=== PATIENT | male | born 1960 | race Caucasian/White ===

== ENCOUNTER 2019-09-11 19:52 | Emergency (ER) | payer OTHER, SELFPAY ==
[2019-09-11 20:02] VITALS: BP 157/78; PULSE 107; RESP 20; TEMP 37; O2SAT 97; BMI 34.7
--- NOTE | 2019-09-11 21:32 | ED_ITS ---
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 He does not note any rashes or particular edema. He has had a left knee replacement in the past. He had 2 days where he had some numbness to the left anterior davey but that has since resolved. He has a bit of an antalgic gait because of the pain in the thigh. Describes some mild chronic back pain that does not seem particularly different or bothersome at this time. He denies fever, cough, chills. No chest pain, dyspnea, palpitations that he is appreciated. No nausea vomiting or diarrhea. No significant lower extremity edema, no rashes, no bruising or rashes along the leg. He has never had similar symptoms. Related Data Allergies Allergy/AdvReac Type Severity Reaction Status Date / Time oxycodone Allergy ITCHING Verified 09/11/19 20:10 Review of Systems Review of Systems Narrative: Remainder of review of systems including constitutional, ENT, cardiovascular, respiratory, GI, , musculoskeletal, skin, neurologic and psychiatric systems reviewed and are unremarkable except as noted in HPI. Patient History Surgical History History of left knee replacement (Acute) Social History Smoking Status: Never smoker Smoking Status: Never smoker alcohol intake frequency: 0-2 drinks per day Substance Use Type: does not use Exam Narrative Exam Narrative: General: Healthy appearing, in no acute distress. Able to give a complete and coherent history. Well-nourished well-developed HEENT: Moist mucous membranes, normal sclera with reactive pupils, Neck: supple Respiratory: Lungs are clear to auscultation, no wheezing no rales no rhonchi. Full and symmetrical air movement Cardiac: Tachycardic with Regular rate and rhythm no murmurs no bruits Abdomen: Soft nontender good bowel tones, no flank pain Skin: Warm and dry, no rashes Neurologic: Grossly neurologically intact with no obvious asymmetries or abnormalities Extremities: No trauma, well perfused. No inguinal adenopathy with good inguinal pulses left groin. No rashes swelling erythema or palpable tenderness appreciable the left anterior thigh Psych: Cooperative, appropriate insight and affect Initial Vital Signs Initial Vital Signs: Vital Signs Temperature 98.6 F 09/11/19 20:02 Pulse Rate 107 H 09/11/19 20:02 Respiratory Rate 20 09/11/19 20:02 Blood Pressure 157/78 H 09/11/19 20:02 Pulse Oximetry 97 09/11/19 20:02 Course Orders Ordered: ED Orders 09/11/19 21:41 perip venous low extrem lt Stat 09/11/19 21:51 Complete Blood Count AUTO DIFF Stat Comprehensive Metabolic Panel Stat D Dimer Stat Vital Signs Vital signs: Vital Signs - 8 hr 09/11/19 20:02 Temperature 98.6 F Pulse Rate 107 H Respiratory Rate 20 Blood Pressure 157/78 H Pulse Oximetry 97 MDM - Extremity (Nontraumatic) Medical Records Attestation: I reviewed the patient's medical records. Lab Data Attestation: I reviewed the patient's lab results. Lab results narrative: Normal D-dimer Result diagrams: 09/11/19 21:51 09/11/19 21:51 Labs: Lab Results 09/11/19 09/11/19 09/11/19 Range/Units 21:51 21:51 21:51 WBC 11.9 H (4.5-11.0) X10^3/uL RBC 5.13 (4.5-5.9) X10^6/uL Hgb 15.5 (13.5-17.5) g/dL Hct 45.0 (41-53) % MCV 87.9 (80-100) fL MCH 30.3 (26-34) PG MCHC 34.5 (30-36) % RDW 13.9 (11.6-14.8) % Plt Count 221 (150-400) X10^3/uL Neut % (Auto) 57.0 (50-75) % Lymph % (Auto) 29.7 (25-40) % [place] % (Auto) 10.3 (3-14) % Eos % (Auto) 1.9 L (2-4) % Baso % (Auto) 1.1 (0-2) % Neut # (Auto) 6800 (1920-3846) /uL Lymph # (Auto) 3500 (1295-6766) /uL [place] # (Auto) 1200 H (0-900) /uL Eos # (Auto) 200 (0-450) /uL Baso # (Auto) 100 (0-100) /uL D-Dimer < 200 (<230) ng/mL Sodium 140 (137-145) mmol/L Potassium 4.2 (3.4-5.1) mmol/L Chloride 102 (98-107) mmol/L Carbon Dioxide 30 (22-32) mmol/L BUN 31 H (9-20) mg/dL Creatinine 0.82 (0.66-1.25) mg/dL Estimated GFR > 60.0 (>60) mL/min BUN/Creatinine Ratio 37.8 H (6-22) Glucose 118 H (70-100) mg/dL Calcium 9.7 (8.4-10.2) mg/dL Total Bilirubin 0.4 (0.2-1.3) mg/dL AST 35 (17-59) IU/L ALT 32 (<50) IU/L Alkaline Phosphatase 113 (38-126) U/L Total Protein 7.6 (6.3-8.2) g/dL Albumin 4.6 (3.5-5.0) g/dL Globulin 3.0 (1.7-4.1) g/dL Albumin/Globulin Ratio 1.5 (1.0-2.8) Imaging Data US - DVT: My Impression: Per environmental sampling technician, no evidence of DVT through the entire leg or thigh MDM Narrative Medical decision making narrative: 59-year-old gentleman with acute musculoskeletal pain in the left anterior thigh. No evidence of cellulitis, DVT or acute radiculopathy. Labs are reassuring. This point most likely explanation is musculoskeletal pain. Given your prior knee replacement on that side and the sense that the leg is not stable when the pain hits and your unable to predict when that might be I believe your risk of falling is significant. I recommend 5 days of rest. Ibuprofen can be helpful. If you are not at work, you can use Percocet to au gment the ibuprofen for the 1st 2-3 days. If you are still feeling pain or intermittent weakness you need to be re-evaluated. Discharge Plan Departure Patient Disposition: Home Clinical Impression: Acute pain of left thigh Instructions: DI for Musculoskeletal Pain Activity Restrictions/Additional Instructions: Thank you for coming in today I believe you have pulled your left thigh and that this will heal nicely. There is no evidence of infection, blood clot or bony injury. With the pain and intermittent episodes of weakness secondary to pain my recommendation is 5 days of light duty to allow the muscle to heal. Gentle walking is acceptable but no lifting or carrying would be appropriate during this time frame. Using 400 mg of ibuprofen (2 [id number] pills) and 1 Tylenol every 6 hours can be very helpful in controlling pain. If you have developing new symptoms or have additional concerns or findings, please feel free to return and I am happy to re-evaluate.
--- NOTE | 2019-09-11 21:41 | DI.US.S_ITS ---
PROCEDURE: US PERIPH VENOUS LOW EXTREM LT INDICATIONS: THIGH PAIN TECHNIQUE: Real-time imaging, as well as color and pulse Doppler interrogation, were performed of the lower extremity deep veins from the inguinal ligament to the popliteal fossa. COMPARISON: None. FINDINGS: The common femoral, femoral and popliteal veins are normally compressible, and free of intraluminal thrombus. Color and pulse Doppler demonstrate normal phasic intraluminal flow. There is normal augmentation response to distal compression maneuver. IMPRESSION: Negative left lower extremity duplex ultrasound for DVT Comment: Final report is concordant with preliminary interpretation provided by [facility]. Dictated by: Eugene John M.D. on 09/12/2019 at 6:42 Approved by: Eugene John M.D. on 09/12/2019 at 6:47
[2019-09-11 22:00] LABS: Add Manual Diff / Slide Review NO; Basophils Absolute Auto 100 /uL (0-100); Basophils Percent Auto 1.1 % (0-2); Eosinophils Absolute Auto 200 /uL (0-450); Eosinophils Percent Auto 1.9 % (2-4); Hemoglobin 15.5 g/dL (13.5-17.5); Lymphocytes Absolute Auto 3500 /uL (1100-4500); Lymphocytes Percent Auto 29.7 % (25-40); Mean Corpuscular HGB Conc 34.5 % (30-36); Mean Corpuscular Hemoglobin 30.3 PG (26-34); Mean Corpuscular Volume 87.9 fL (80-100); Monocytes Absolute Auto 1200 /uL (0-900); Monocytes Percent Auto 10.3 % (3-14); Neutrophils Absolute Auto 6800 /uL (1500-7000); Platelet Count 221 X10^3/uL (150-400); Red Blood Cell Count 5.13 X10^6/uL (4.5-5.9); Red Cell Distribution Width 13.9 % (11.6-14.8); White Blood Cell Count 11.9 X10^3/uL (4.5-11.0)
[2019-09-11 22:08] LABS: Alanine Aminotransferase 32 IU/L (<50); Albumin 4.6 g/dL (3.5-5.0); Albumin Globulin Ratio 1.5 (1.0-2.8); Alkaline Phosphatase 113 U/L (38-126); Aspartate Aminotransferase 35 IU/L (17-59); BUN Creatinine Ratio 37.8 (6-22); Bilirubin Total 0.4 mg/dL (0.2-1.3); Blood Urea Nitrogen 31 mg/dL (9-20); Calcium 9.7 mg/dL (8.4-10.2); Carbon Dioxide 30 mmol/L (22-32); Chloride 102 mmol/L (98-107); Estimated Glomerular Filt Rate > 60.0 mL/min (>60); Glucose 118 mg/dL (70-100); HEMOLYSIS 21 (0-50); Potassium 4.2 mmol/L (3.4-5.1); Sodium 140 mmol/L (137-145); Total Protein 7.6 g/dL (6.3-8.2)
[2019-09-11 22:09] LABS: D Dimer < 200 ng/mL (<230)
[2019-09-11 23:00] VITALS: BP 143/76; PULSE 102; RESP 16; O2SAT 96
== END 2019-09-11 23:00 | disposition home or self-care (01) ==
PROVIDERS: Emergency Provider Emergency Medicine
DX: M79.652 Pain in left thigh (principal); I10 Essential (primary) hypertension; Z96.652 Presence of left artificial knee joint
CPT/HCPCS: 36415; 80053; 85025; 85379; 93971; 99284